=== PATIENT | female | born 1995 | race Caucasian/White ===

== ENCOUNTER 2016-12-08 22:04 | Emergency (ER) | payer OTHER ==
[~2016-12-08] VITALS: Ht 167.6 cm; Wt 63.0 kg
[~2016-12-08 22:04] MED LIST: AMOXICILLIN/CL875 MG PO; BACTRIM DS1 TAB PO; FLONASE NASAL50 MCG; MACROBID100 MG PO; NAPROSYN500 MG PO; NO MEDS; PHENERGAN25 MG/TAB PO; PRENA PO; PREVPAC OR; PROAIR HFA IN; QUATREFO PO; TORADOL PO
[2016-12-08 23:00] LABS: HEMATOCRIT 39.9 % (37.0-47.0); IMMATURE GRANULOCYTES 0.3 % (0.0-1.0); MEAN CELL VOLUME 88.9 fL CALC (80.0-100.0); MEAN CORPUSCULAR HGB CONC 32.6 g/L CALC (32.0-36.0); NEUT# 3.79 thou/uL (2.00-7.15); RED BLOOD COUNT 4.49 mill/uL (4.20-5.60); RED CELL DISTRI WIDTH 13.1 % (11.5-15.5)
[2016-12-08 23:13] LABS: ALBUMIN 4.6 g/dL (3.2-5.0); ALKALINE PHOSPHATASE 67 u/l (38-126); ANION GAP 15 (6-22 (CALC)); BILIRUBIN, TOTAL 0.5 mg/dL (0.0-1.4); BUN 11 mg/dL (7-17); BUN/CREATININE RATIO 15 (12-20 (CALC)); CALCIUM 9.7 mg/dL (8.4-10.2); CARBON DIOXIDE 26 mmol/l (22-30); CHLORIDE 105 mmol/l (95-108); CREATININE 0.8 mg/dL (0.5-1.0); GFR > 60 ML/MIN (>=60 (CALC)); GFR FOR AFR.AMER. > 60 ML/MIN (>=60 (CALC)); GLUCOSE 95 mg/dL (65-105); POTASSIUM 3.9 mmol/l (3.5-5.1); SGOT/AST 21 u/l (14-36); SGPT/ALT 30 u/l (9-52); SODIUM 142 mmol/l (137-146); TOTAL PROTEIN 7.5 g/dL (6.3-8.2)
[2016-12-08 23:16] LABS: URINE BILIRUBIN - DIPSTICK NEGATIVE (NEGATIVE); URINE BLOOD DIPSTICK NEGATIVE (NEGATIVE); URINE CLARITY TURBID; URINE COLOR YELLOW; URINE GLUCOSE - DIPSTICK NEGATIVE (NEGATIVE); URINE KETONE NEGATIVE (NEGATIVE); URINE LEUK ESTERASE TRACE (NEGATIVE); URINE NITRITE - DIPSTICK NEGATIVE (Negative); URINE PROTEIN - DIPSTICK NEGATIVE (NEG-TRACE)
[2016-12-08 23:21] LABS: BARBITURATES NEGATIVE (NEGATIVE); COCAINE NEGATIVE (NEGATIVE); METHADONE NEGATIVE (NEGATIVE); OXCYCODONE NEGATIVE (NEGATIVE); TETRAHYDROCANNABIONOL NEGATIVE (NEGATIVE); TRICYLIC ANTIDEPRESSANTS NEGATIVE (NEGATIVE)
[2016-12-09 00:44] VITALS: BP 110/55
== END 2016-12-09 00:40 | disposition home or self-care (01) | DRG 101 ==
LOC: ED 22:04
PROVIDERS: Emergency Medicine
DX: G40.909 Epilepsy, unspecified, not intractable, without status epilepticus (principal); F17.210 Nicotine dependence, cigarettes, uncomplicated; R51 Headache; J45.909 Unspecified asthma, uncomplicated

== ENCOUNTER 2017-05-06 10:07 | Emergency (ER) | payer OTHER ==
[~2017-05-06] VITALS: Ht 167.6 cm; Wt 68.0 kg
[2017-05-06 11:19] LABS: URINE BILIRUBIN - DIPSTICK NEGATIVE (NEGATIVE); URINE BLOOD DIPSTICK NEGATIVE (NEGATIVE); URINE COLOR YELLOW; URINE GLUCOSE - DIPSTICK NEGATIVE (NEGATIVE); URINE KETONE NEGATIVE (NEGATIVE); URINE LEUK ESTERASE TRACE (NEGATIVE); URINE NITRITE - DIPSTICK NEGATIVE (Negative); URINE PROTEIN - DIPSTICK NEGATIVE (NEG-TRACE); URINE UROBILINOGEN - DIPSTICK 0.2 E.U./dL (0.2)
[2017-05-06 11:20] LABS: URINE CLARITY CLEAR
[2017-05-06 11:20] LABS: HEMOGLOBIN 13.6 g/dl (12.0-16.0); IMMATURE GRANULOCYTES 0.3 % (0.0-1.0); MEAN CELL VOLUME 89.5 fL CALC (80.0-100.0); MEAN CORPUSCULAR HGB 29.7 pG CALC (26.0-32.0); MEAN CORPUSCULAR HGB CONC 33.2 g/L CALC (32.0-36.0); NEUT# 4.58 thou/uL (2.00-7.15); RED BLOOD COUNT 4.58 mill/uL (4.20-5.60); RED CELL DISTRI WIDTH 13.8 % (11.5-15.5)
[2017-05-06 11:22] LABS: BARBITURATES NEGATIVE (NEGATIVE); COCAINE NEGATIVE (NEGATIVE); METHADONE NEGATIVE (NEGATIVE); OXCYCODONE NEGATIVE (NEGATIVE); TETRAHYDROCANNABIONOL NEGATIVE (NEGATIVE); TRICYLIC ANTIDEPRESSANTS NEGATIVE (NEGATIVE)
[2017-05-06 11:33] LABS: ALBUMIN 4.3 g/dL (3.2-5.0); ALKALINE PHOSPHATASE 52 u/l (38-126); ANION GAP 14 (6-22 (CALC)); BUN 9 mg/dL (7-17); BUN/CREATININE RATIO 13 (12-20 (CALC)); CALCIUM 9.3 mg/dL (8.4-10.2); CARBON DIOXIDE 23 mmol/l (22-30); CHLORIDE 111 mmol/l (95-108); CREATININE 0.7 mg/dL (0.5-1.0); GFR > 60 ML/MIN (>=60 (CALC)); GFR FOR AFR.AMER. > 60 ML/MIN (>=60 (CALC)); GLUCOSE 99 mg/dL (65-105); SGOT/AST 16 u/l (14-36); SGPT/ALT 29 u/l (9-52); SODIUM 143 mmol/l (137-146)
[2017-05-06 12:03] VITALS: BP 117/72
== END 2017-05-06 12:10 | disposition home or self-care (01) | DRG 101 ==
LOC: ED 10:07
PROVIDERS: Emergency Medicine
DX: G40.409 Other generalized epilepsy and epileptic syndromes, not intractable, without status epilepticus (principal); F17.210 Nicotine dependence, cigarettes, uncomplicated

== ENCOUNTER 2018-07-21 17:22 | Emergency (ER) | payer SELFPAY ==
[~2018-07-21] VITALS: Ht 167.6 cm; Wt 70.0 kg
[2018-07-21 18:05] LABS: HEMATOCRIT 42.4 % (37.0-47.0); HEMOGLOBIN 14.4 g/dl (12.0-16.0); IMMATURE GRANULOCYTES 0.4 % (0.0-5.0); MEAN CELL VOLUME 94.2 fL CALC (80.0-100.0); NEUT# 6.51 thou/uL (2.00-7.15); RED BLOOD COUNT 4.5 mill/uL (4.20-5.60); RED CELL DISTRI WIDTH 11.8 % (11.5-15.5)
[2018-07-21 18:20] LABS: ALBUMIN 4.5 g/dL (3.2-5.0); ALKALINE PHOSPHATASE 63 u/l (38-126); ANION GAP 13 (6-22 (CALC)); BILIRUBIN, TOTAL 0.7 mg/dL (0.0-1.4); BUN 8 mg/dL (7-17); BUN/CREATININE RATIO 11 (12-20 (CALC)); CARBON DIOXIDE 24 mmol/l (22-30); CHLORIDE 107 mmol/l (95-108); CREATININE 0.7 mg/dL (0.5-1.0); GFR > 60 ML/MIN (>=60 (CALC)); GFR FOR AFR.AMER. > 60 ML/MIN (>=60 (CALC)); POTASSIUM 3.8 mmol/l (3.5-5.1); SGOT/AST 23 u/l (14-36); SODIUM 140 mmol/l (137-146); TOTAL PROTEIN 7.5 g/dL (6.3-8.2)
[2018-07-21 19:03] VITALS: BP 123/82
== END 2018-07-21 19:20 | disposition home or self-care (01) | DRG 101 ==
LOC: ED 17:22
PROVIDERS: Family Medicine
DX: G40.909 Epilepsy, unspecified, not intractable, without status epilepticus (principal); T42.76XA Underdosing of unspecified antiepileptic and sedative-hypnotic drugs, initial encounter; F17.200 Nicotine dependence, unspecified, uncomplicated; Z91.128 Patient's intentional underdosing of medication regimen for other reason

== ENCOUNTER 2018-08-23 16:00 | Emergency (ER) | payer SELFPAY ==
[~2018-08-23] VITALS: Ht 165.1 cm; Wt 63.6 kg
[2018-08-23] MEDS ORDERED: KEPPRA250 M1 PO (16:09)
[2018-08-23] MEDS ORDERED: BACTROBAN TOP (17:01)
[2018-08-23] MEDS ORDERED: KEFLEX500 M1 PO (17:01)
[2018-08-23 17:19] VITALS: BP 117/76
== END 2018-08-23 17:20 | disposition home or self-care (01) | DRG 605 ==
LOC: ED 16:00
DX: S80.812A Abrasion, left lower leg, initial encounter (principal); G40.909 Epilepsy, unspecified, not intractable, without status epilepticus; F17.210 Nicotine dependence, cigarettes, uncomplicated; W13.3XXA Fall through floor, initial encounter; Y92.008 Other place in unspecified non-institutional (private) residence as the place of occurrence of the external cause

== ENCOUNTER 2018-12-16 01:15 | Emergency (ER) | payer OTHER ==
[~2018-12-16] VITALS: Ht 165.1 cm; Wt 50.0 kg
[~2018-12-16 01:15] MED LIST changes: +BACTROBAN TOP; +KEFLEX500 M1 PO; +KEPPRA250 M1 PO
[2018-12-16] MEDS ORDERED: [UNRECOGNIZED DRUG - REMARK] PO (01:22)
[2018-12-16 02:50] VITALS: BP 111/80
== END 2018-12-16 02:50 | disposition home or self-care (01) ==
LOC: ED 01:15
DX: S50.01XA Contusion of right elbow, initial encounter (principal); W01.190A Fall on same level from slipping, tripping and stumbling with subsequent striking against furniture, initial encounter; Y93.01 Activity, walking, marching and hiking; Y92.009 Unspecified place in unspecified non-institutional (private) residence as the place of occurrence of the external cause

== ENCOUNTER 2019-08-14 | Emergency (ER) | payer OTHER ==
[~2019-08-14] MED LIST changes: +[UNRECOGNIZED DRUG - REMARK] PO
== END 2019-08-14 17:25 | disposition home or self-care (01) ==
DX: S60.211A Contusion of right wrist, initial encounter (principal); G40.909 Epilepsy, unspecified, not intractable, without status epilepticus; F17.210 Nicotine dependence, cigarettes, uncomplicated; W01.0XXA Fall on same level from slipping, tripping and stumbling without subsequent striking against object, initial encounter; Y92.009 Unspecified place in unspecified non-institutional (private) residence as the place of occurrence of the external cause

== ENCOUNTER 2020-05-02 17:40 | Emergency (ER) | payer OTHER ==
[~2020-05-02] VITALS: Ht 165.1 cm; Wt 70.0 kg
[2020-05-02 18:40] LABS: HEMATOCRIT 39.6 % (37.0-47.0); IMMATURE GRANULOCYTES 0.3 % (0.0-5.0); MEAN CELL VOLUME 93.4 fL CALC (80.0-100.0); MEAN CORPUSCULAR HGB 30.7 pG CALC (26.0-32.0); MEAN CORPUSCULAR HGB CONC 32.8 g/dL CAL (32.0-36.0); NEUT# 5.06 thou/uL (2.00-7.15); RED BLOOD COUNT 4.24 mill/uL (4.20-5.60); RED CELL DISTRI WIDTH 11.6 % (11.5-15.5)
[2020-05-02 18:55] LABS: ALBUMIN 4.2 g/dL (3.2-5.0); ALKALINE PHOSPHATASE 63 u/l (38-126); ANION GAP 12 (6-22 (CALC)); BILIRUBIN, TOTAL 0.8 mg/dL (0.0-1.4); BUN 12 mg/dL (7-17); BUN/CREATININE RATIO 18 (12-20 (CALC)); CARBON DIOXIDE 23 mmol/l (22-30); CHLORIDE 108 mmol/l (95-108); CREATININE 0.6 mg/dL (0.5-1.0); GFR > 60 ML/MIN (>=60 (CALC)); GFR FOR AFR.AMER. > 60 ML/MIN (>=60 (CALC)); LIPASE 56 u/l (23-300); POTASSIUM 3.9 mmol/l (3.5-5.1); SGOT/AST 30 u/l (14-36); SODIUM 139 mmol/l (137-146); TOTAL PROTEIN 7.3 g/dL (6.3-8.2)
[2020-05-02 20:35] VITALS: BP 115/76
== END 2020-05-02 20:37 | disposition home or self-care (01) ==
LOC: ED 17:40
PROVIDERS: Family Medicine
DX: R07.81 Pleurodynia (principal); S60.211A Contusion of right wrist, initial encounter; G40.909 Epilepsy, unspecified, not intractable, without status epilepticus; F17.200 Nicotine dependence, unspecified, uncomplicated; V86.95XA Unspecified occupant of 3- or 4- wheeled all-terrain vehicle (ATV) injured in nontraffic accident, initial encounter
CPT/HCPCS: Q9967

== ENCOUNTER 2021-02-20 08:11 | Emergency (ER) | payer OTHER ==
[~2021-02-20] VITALS: Ht 165.1 cm; Wt 70.5 kg
[2021-02-20 09:59] VITALS: BP 110/63
[2021-04-09] MEDS ORDERED: DOXYCYCL HYC100 MG PO (15:46)
[2021-04-09] MEDS ORDERED: METHYLPRED4 MG PO (15:47)
[2021-04-09] MEDS ORDERED: BACTRIM DS1 TAB PO (17:19)
[2021-04-09] MEDS ORDERED: KEFLEX500 MG PO (17:19)
== END 2021-02-20 09:59 | disposition home or self-care (01) ==
LOC: ED 08:11
DX: M25.512 Pain in left shoulder (principal); G40.909 Epilepsy, unspecified, not intractable, without status epilepticus; F17.200 Nicotine dependence, unspecified, uncomplicated

== ENCOUNTER 2021-04-11 15:28 | Emergency (ER) | payer OTHER ==
[~2021-04-11] VITALS: Ht 165.1 cm; Wt 64.0 kg
[~2021-04-11 15:28] MED LIST changes: +DOXYCYCL HYC100 MG PO; +KEFLEX500 MG PO; +METHYLPRED4 MG PO
[2021-04-11 15:50] VITALS: BP 110/63
== END 2021-04-11 16:32 | disposition home or self-care (01) ==
LOC: ED 15:28
DX: Z48.01 Encounter for change or removal of surgical wound dressing (principal)

== ENCOUNTER 2021-04-29 13:52 | Emergency (ER) | payer OTHER ==
[~2021-04-29] VITALS: Ht 165.1 cm; Wt 78.0 kg
[2021-04-29] MEDS ORDERED: LEXAPRO10 MG PO (14:49)
[2021-04-29 16:43] VITALS: BP 118/78
== END 2021-04-29 16:43 | disposition home or self-care (01) | DRG 605 ==
LOC: ED 13:52
DX: S80.01XA Contusion of right knee, initial encounter (principal); M54.2 Cervicalgia; M25.532 Pain in left wrist; M25.522 Pain in left elbow; G40.909 Epilepsy, unspecified, not intractable, without status epilepticus; V53.5XXA Driver of pick-up truck or van injured in collision with car, pick-up truck or van in traffic accident, initial encounter

== ENCOUNTER 2021-11-29 09:11 | Emergency (ER) | payer OTHER ==
[~2021-11-29] VITALS: Ht 165.1 cm; Wt 89.0 kg
[~2021-11-29 09:11] MED LIST changes: +LEXAPRO10 MG PO
[2021-11-29 10:44] LABS: URINE BILIRUBIN - DIPSTICK NEGATIVE (NEGATIVE); URINE BLOOD DIPSTICK NEGATIVE (NEGATIVE); URINE COLOR YELLOW; URINE GLUCOSE - DIPSTICK NEGATIVE (NEGATIVE); URINE KETONE NEGATIVE (NEGATIVE); URINE LEUK ESTERASE TRACE (Negative); URINE NITRITE - DIPSTICK NEGATIVE (Negative); URINE PROTEIN - DIPSTICK NEGATIVE (NEG-TRACE)
[2021-11-29 10:47] LABS: URINE CLARITY SL CLOUDY
[2021-11-29 10:53] VITALS: BP 111/83
[2021-11-29] MEDS ORDERED: NAPROXEN500 MG PO (13:26)
== END 2021-11-29 13:39 | disposition home or self-care (01) ==
LOC: ED 09:11
DX: M25.512 Pain in left shoulder (principal); G40.909 Epilepsy, unspecified, not intractable, without status epilepticus

== ENCOUNTER 2022-04-21 18:17 | Emergency (ER) | payer OTHER ==
[~2022-04-21] VITALS: Ht 165.1 cm; Wt 84.1 kg
[~2022-04-21 18:17] MED LIST changes: +NAPROXEN500 MG PO
[2022-04-21] MEDS ORDERED: AMOXICILLIN500 MG PO (18:59)
[2022-04-21 19:18] VITALS: BP 123/83
== END 2022-04-21 19:23 | disposition home or self-care (01) ==
LOC: ED 18:17
DX: J03.90 Acute tonsillitis, unspecified (principal); G40.909 Epilepsy, unspecified, not intractable, without status epilepticus

== ENCOUNTER 2023-02-18 18:38 | Emergency (ER) | payer OTHER ==
[~2023-02-18 18:38] MED LIST changes: +AMOXICILLIN500 MG PO
== END 2023-02-18 20:04 | disposition left against medical advice (07) | DRG 951 ==
LOC: ED 18:38 → LWOBS 20:04
DX: Z53.21 Procedure and treatment not carried out due to patient leaving prior to being seen by health care provider (principal)

== ENCOUNTER 2023-07-08 22:20 | Emergency (ER) | payer OTHER ==
[~2023-07-08] VITALS: Ht 165.1 cm; Wt 77.0 kg
[2023-07-08] MEDS ORDERED: PRENATAL DHA200 MG PO (23:59)
[2023-07-09 00:09] VITALS: BP 133/91
== END 2023-07-09 00:09 | disposition home or self-care (01) ==
LOC: ED 22:20
DX: O03.9 Complete or unspecified spontaneous abortion without complication (principal); G40.909 Epilepsy, unspecified, not intractable, without status epilepticus

== ENCOUNTER 2024-06-11 13:28 | Emergency (ER) | payer SELFPAY ==
[2024-06-11] VITALS (7 sets, daily range): BP systolic 96–119; BP diastolic 63–85
[~2024-06-11] VITALS: Ht 165.1 cm; Wt 79.0 kg
[~2024-06-11 13:28] MED LIST changes: +PRENATAL DHA200 MG PO
[2024-06-11] MEDS ORDERED: DEXAMETHASONE SOD. PHOSPHATE 10 MG/ML VIAL IM ONE (14:15)
[2024-06-11] MEDS ORDERED: KETOROLAC TROMETHAMINE 30 MG/ML SDV IM ONE (14:15)
[2024-06-11] MEDS ORDERED: MEDDOSEPAK PO (15:06)
[2024-06-11] MEDS ORDERED: ZPAK PO (15:06)
== END 2024-06-11 15:36 | disposition home or self-care (01) | DRG 153 ==
LOC: ED 13:28
DX: J02.9 Acute pharyngitis, unspecified (principal); R05.9 Cough, unspecified; R50.9 Fever, unspecified
CPT/HCPCS: J1100

== ENCOUNTER 2024-08-12 20:20 | Emergency (ER) | payer SELFPAY ==
[~2024-08-12 20:20] MED LIST changes: +MEDDOSEPAK PO; +ZPAK PO
== END 2024-08-12 20:45 | disposition left against medical advice (07) | DRG 951 ==
LOC: ED 20:20 → LWOBS 20:45
DX: Z53.21 Procedure and treatment not carried out due to patient leaving prior to being seen by health care provider (principal)